=== PATIENT | male | born 1985 | race African-American/Black ===

== ENCOUNTER 2021-09-25 17:06 | Emergency (ER) | payer OTHER ==
[2021-09-25 17:26] VITALS: BP 131/80
== END 2021-09-25 18:15 | disposition left against medical advice (07) ==
LOC: ED 17:06
DX: Z53.21 Procedure and treatment not carried out due to patient leaving prior to being seen by health care provider (principal)

== ENCOUNTER 2021-09-26 14:50 | Emergency (ER) | payer OTHER ==
--- NOTE | 2021-09-26 16:38 | ED Physician Documentation ---
History of Present Illness - Stated complaint Stated Complaint: DIZZY,FATIGUE - Chief complaint Chief Complaint: General - Additonal information Additional information: 35-year-old male presents emergency department for 3 days of generalized myalgias fatigue low-grade fevers headache and feeling dizzy. Denies any cough abdominal pain nausea vomiting dysuria. He is fully vaccinated for COVID-19 and denies any sick contacts denies any pertinent past medical history denies alcohol or tobacco use. Review of Systems Constitutional: reports: Fever, Chills, Myalgias, Fatigue Eyes: reports: Reviewed and negative Ears: reports: Reviewed and negative Nose: reports: Congestion Throat: reports: Reviewed and negative Cardiac: denies: Chest pain / pressure, Palpitations Respiratory: denies: Dyspnea, Cough GI: denies: Abdominal Pain, Nausea, Vomiting : denies: Dysuria Skin: reports: Reviewed and negative Musculoskeletal: reports: Reviewed and negative Neurologic: reports: Headache Psychiatric: reports: Reviewed and negative PD PAST MEDICAL HISTORY - Allergies Allergies/Adverse Reactions: Allergies Allergy/AdvReac Type Severity Reaction Status Date / Time No Known Drug Allergies Allergy Verified 09/26/21 15:07 PD ED PE NORMAL - General General: Alert and oriented X 3, No acute distress - HEENT HEENT: PERRL - Neck Neck: Supple, no meningeal sign, Thyroid normal - Cardiac Cardiac: RRR, No murmur, No gallop - Respiratory Respiratory: No respiratory distress - Abdomen Abdomen: Normal bowel sounds, Soft - Back Back: No CVA TTP, No spinal TTP - Derm Derm: Normal color, Warm and dry - Extremities Extremities: No deformity, No tenderness to palpate, Normal ROM s pain - Neuro Neuro: Alert and oriented X 3, 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 No abdominal pain nausea vomiting. He is fully vaccinated for COVID-19. His cardiopulmonary exam is unremarkable. No hypoxia or labored breathing. No abdominal tenderness was elicited. A COVID-19 test is pending however I do suspect that this gentleman likely has a viral illness. Recommended fluids, rest Tylenol and ibuprofen. Emergent return precautions were discussed for failure of symptoms to improve. Departure - Departure Disposition: 01 Home, Self Care Clinical Impression: Encounter for screening for COVID-19, Generalized body aches Condition: Stable Record reviewed to determine appropriate education?: Yes Comments: Ruel randolph were seen in the emergency department today for, dizziness and lack of appetite. Your physical exam is normal. Your oxygen levels are normal and your lungs sound normal. I suspect that you have a virus causing your symptoms. We are testing you for COVID-19. In general recommend that you drink lots of fluids and get plenty of rest. You can take Tylenol ibuprofen for body aches and fevers. It is important you remain in quarantine until your test results are known. You have a Covid test pending. You need to self quarantine until the result is done and negative. Do not leave your house. Do not get near anybody. The results should be done in 48 to 72 hours. We will call with a positive result, the fastest way to get a negative result for confirmation though is to go to the hospital website at [email or web address], click on the my [facility] tab and sign up for the patient portal. If any friends or family get sick and would like to have a Covid test done, but do not have signs or symptoms that would necessitate being hospitalized, there are multiple local options for Covid testing. [facility] keeps an updated list of testing and vaccination options at [email or web address]
[2021-09-26 17:07] VITALS: BP 129/76
== END 2021-09-26 17:06 | disposition home or self-care (01) ==
LOC: ED 14:50
DX: M79.10 Myalgia, unspecified site (principal); Z20.822 Contact with and (suspected) exposure to COVID-19
CPT/HCPCS: 99282; 99283

== ENCOUNTER 2021-10-03 15:10 | Emergency (ER) | payer OTHER ==
--- NOTE | 2021-10-03 15:21 | ED Physician Documentation ---
History of Present Illness - Stated complaint Stated Complaint: RETEST - Additonal information Additional information: 35-year-old male presents emergency department requesting COVID-19 test. Seen by myself on 26 September for URI symptoms. A COVID test was sent to the lab but for reasons that are not clear was canceled. Reports that his symptoms have fully diminished but he is requesting a test to be negative before he returns to work with the [employer]. Review of Systems Constitutional: denies: Fever, Chills Eyes: reports: Reviewed and negative Ears: reports: Reviewed and negative Nose: reports: Reviewed and negative Throat: reports: Reviewed and negative Cardiac: reports: Reviewed and negative Respiratory: reports: Reviewed and negative : reports: Reviewed and negative PD PAST MEDICAL HISTORY - Allergies Allergies/Adverse Reactions: Allergies Allergy/AdvReac Type Severity Reaction Status Date / Time No Known Drug Allergies Allergy Verified 09/26/21 15:07 PD ED PE NORMAL - General General: Alert and oriented X 3, No acute distress - HEENT HEENT: PERRL - Cardiac Cardiac: RRR, No murmur - Respiratory Respiratory: No respiratory distress, Clear bilaterally - Abdomen Abdomen: Normal bowel sounds, Soft, Non tender, Non distended Results - Vitals Vitals: Oxygen O2 Source Room air PD MEDICAL DECISION MAKING - ED course Complexity details: d/w patient ED course: Patient here for COVID-19 screening. Seen by myself a week ago. COVID-19 testing was ordered but for reasons that are not clear was counseled by the lab. He is requesting a negative test before he returns to work with the [employer]. COVID-19 screen is ordered today. Advised to remain in quarantine until test results are known. Departure - Departure Disposition: Home, Self Care Clinical Impression: Encounter for screening for COVID-19 Condition: Stable Record reviewed to determine appropriate education?: Yes Comments: Ruel we do have a COVID-19 test pending on you today. It is not clear why the other once was not completed. We will notify you only if this result is positive. You have a Covid test pending. You need to self quarantine until the result is done and negative. Do not leave your house. Do not get near anybody. The results should be done in 48 to 72 hours. We will call with a positive result, the fastest way to get a negative result for confirmation though is to go to the hospital website at [email or web address], click on the my [facility] tab and sign up for the patient portal. If any friends or family get sick and would like to have a Covid test done, but do not have signs or symptoms that would necessitate being hospitalized, there are multiple local options for Covid testing. [facility] keeps an updated list of testing and vaccination options at [email or web address]
[2021-10-03 15:26] VITALS: BP 135/76
[2021-10-03 16:40] LABS: CORONAVIRUS 229E-RESP PCR NOT DETECTED; CORONAVIRUS HKU1-RESP PCR NOT DETECTED; CORONAVIRUS NL63-RESP PCR NOT DETECTED; CORONAVIRUS OC43-RESP PCR NOT DETECTED
[2021-10-03 16:43] LABS: B. PARAPERTUSSIS- RESP PCR PAN NOT DETECTED; B. PERTUSSIS- RESP PCR PANEL NOT DETECTED; C. PNEUMONIAE- RESP PCR PANEL NOT DETECTED; HUMAN METAPNEUMOVIRUS NOT DETECTED; INFLUENZA A- RESP PCR PANEL NOT DETECTED; INFLUENZA B - RESP PCR PANEL NOT DETECTED; M. PNEUMONIAE- RESP PCR PANEL NOT DETECTED; PARAINFLUENZA VIRUS 1 NOT DETECTED; PARAINFLUENZA VIRUS 2 NOT DETECTED; PARAINFLUENZA VIRUS 3 NOT DETECTED; PARAINFLUENZA VIRUS 4 NOT DETECTED; RHINOVIRUS/ENTEROVIRUS NOT DETECTED; RSV- RESP PCR PANEL NOT DETECTED; SARS-CoV-2 -RESP PCR PANEL DETECTED
== END 2021-10-03 16:55 | disposition home or self-care (01) ==
LOC: ED 15:10
DX: Z11.52 Encounter for screening for COVID-19 (principal); U07.1 COVID-19
CPT/HCPCS: 0202U; 99281; 99283

== ENCOUNTER 2022-06-04 20:02 | Emergency (ER) | payer OTHER ==
--- NOTE | 2022-06-04 20:15 | ED Physician Documentation ---
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 Pain is significant but declines pain medication.) Review of Systems Constitutional: reports: Reviewed and negative Ears: reports: Reviewed and negative Nose: reports: Reviewed and negative Throat: reports: Reviewed and negative PD PAST MEDICAL HISTORY - Past Medical History Cardiovascular: None Respiratory: None Neuro: None Endocrine/Autoimmune: None GI: None : None HEENT: None Psych: None Musculoskeletal: None Derm: None - Past Surgical History Past Surgical History: No - Present Medications Home Medications: Ambulatory Orders Medication Instructions Recorded Confirmed No Known Home Medications 10/03/21 06/04/22 - Allergies Allergies/Adverse Reactions: Allergies Allergy/AdvReac Type Severity Reaction Status Date / Time No Known Drug Allergies Allergy Verified 06/04/22 20:15 - Social History Does the pt smoke?: No Smoking Status: Never smoker - Immunizations Immunizations are current?: Yes PD ED PE NORMAL - Vitals Vital signs reviewed: Yes - General General: Alert and oriented X 3, No acute distress - Extremities Extremities: Other (Right second finger is tender and swollen at the distal phalanx and DIP with limited range of motion due to pain but no distal neur ovascular compromise. He has a 10% subungual hematoma.) - Neuro Neuro: Alert and oriented X 3, Normal speech - Psych Psych: Normal mood, Normal affect Results - Vitals Vitals: Vital Signs - 24 hr 06/04/22 06/04/22 06/04/22 20:12 20:45 21:12 Temperature 36.5 C Heart Rate 56 L Respiratory 15 15 15 Rate Blood Pressure 144/96 H 132/83 H O2 Saturation 100 Oxygen O2 Source Room air - Rads (name of study) Three-view x-ray of the right second finger demonstrates dystrophic calcifications on the palmar surface but no fracture or dislocation. Radiology: EMP read contemporaneously Procedures - General procedure General procedure: Prior to discharge he requested trephination of the nail feeling like he had a lot of pressure in there. His subungual hematoma was fairly small; only 10 to 20%. But at his request a digital block was done in standard fashion with buffered lidocaine. And trephination of the proximal part of the nail where the hematoma was was done. Departure - Departure Disposition: 01 Home, Self Care Clinical Impression: Crushing injury of finger of right hand Condition: Good Record reviewed to determine appropriate education?: Yes Instructions: ED Crush Injury Finger No Fx Comments: Recheck with your physician in 1 week if not better, return for new or worsening symptoms. You can take Tylenol and/or ibuprofen as needed per package instructions for pain. Also find elevate and ice it. Forms: Activity restrictions
--- NOTE | 2022-06-04 21:11 | XRAY Report ---
PROCEDURE: Finger(s) RT INDICATIONS: finger inj TECHNIQUE: AP hand, 2 views of the second digit acquired. COMPARISON: None. FINDINGS: Bones: No fractures or dislocations. No suspicious bony lesions. Soft tissues: There are scattered foci of soft tissue calcifications within the thenar soft tissues, adjacent to the first metacarpal, and in the volar aspect of the distal second digit. IMPRESSION: 1. No fracture or dislocation. 2. Scattered soft tissue calcifications are nonspecific but suggestive of dystrophic calcifications. Reviewed by: Pradeep Dial MD on 06/04/2022 9:10 PM PDT Approved by: Prdaeep Dial MD on 06/04/2022 9:10 PM PDT Station ID: [id number]
[2022-06-04 21:12] VITALS: BP 132/83
[2022-06-04] MEDS ORDERED: BUPIVACAINE 0.5% PF 10 ML VIAL SUBQ STA (21:19)
== END 2022-06-04 21:45 | disposition home or self-care (01) ==
LOC: ED 20:02
DX: S67.21XA Crushing injury of right hand, initial encounter (principal); X58.XXXA Exposure to other specified factors, initial encounter; Y99.1 Military activity
CPT/HCPCS: 11740; 99282; 99283